=== PATIENT | male | born 1965 | race Caucasian/White ===

== ENCOUNTER 2018-06-28 09:55 | Day surgery (SDC) | payer OTHER ==
--- NOTE | 2018-06-20 14:10 | HP ---
PREOPERATIVE HISTORY AND PHYSICAL: DATE OF ADMISSION/SURGERY: 06/28/18 [facility] DATE OF OFFICE VISIT/ENCOUNTER: 06/20/18 ATTENDING SURGEON: Natty Davenport MD * (DICTATED BY IMELDA ORTIZ) PROCEDURE: Right wrist arthroscopy and possible scapholunate ligament repair. CHIEF COMPLAINT: Right wrist pain. HISTORY OF PRESENT ILLNESS: This is a 52-year-old male who sustained injury to his right wrist back in mid April 2018 when he fell on his yard. All of his weight landed onto his outstretched right hand. He was initially seen at [facility] where x-rays did not show any sign of fracture, but did show a possible problem at the scapholunate junction and a subsequent MRI has confirmed that he has at least a partial tear of the scapholunate ligament. He has been evaluated by Dr. Davenport. He is having pain with all activities involving the right hand. Wrist brace gives him some minimal relief. This is his dominant hand. He is interested in pursuing surgical intervention for his right wrist for best outcome as recommended by Dr. Davenport and has agreed to proceed with a right wrist arthroscopy and possible scapholunate ligament repair. PAST MEDICAL HISTORY: 1. Hypertension. 2. Depression/anxiety. 3. High cholesterol. 4. GERD. PAST SURGICAL HISTORY: 1. Tonsillectomy. 2. Back surgery. 3. Right shoulder surgery. 4. Left wrist fusion. CURRENT MEDICATIONS: 1. Aspirin 81 mg daily. 2. Benadryl Allergy 25 mg q.6 hours p.r.n. itch/rash. 3. Calcium citrate 200 mg daily. 4. Lisinopril 20 mg daily. 5. Loratadine 10 mg daily. 6. Metoprolol tartrate 25 mg daily. 7. Multivitamin daily. 8. Omeprazole 20 mg daily. 9. Sertraline HCl 50 mg daily. 10. Simvastatin 20 mg daily. ALLERGIES: DEMEROL causes nausea. FAMILY MEDICAL HISTORY: Diabetes, heart disease, cancer. SOCIAL HISTORY: He is disabled from work. He denies tobacco use, recreational drug use, and does not drink alcohol. REVIEW OF SYSTEMS: Negative for general, cephalic, cardiovascular, respiratory , GI, , other musculoskeletal, integumentary, endocrine, neurologic, hematologic symptoms. Infectious disease is negative for MRSA, hepatitis C, HIV. PHYSICAL EXAMINATION GENERAL: Well-developed, well-nourished 52-year-old male in no acute distress. VITAL SIGNS: Height 5 feet 9 inches, weight 249 pounds. Pulse rate 76, blood pressure 120/74. HEENT: Normocephalic, atraumatic. Pupils are equal, round, and reactive to light and accommodation. Extraocular movements are intact. NECK: Supple. No palpable lymph nodes. Throat is clear. PULMONARY: Lungs are clear to auscultation bilaterally. No wheezes, rales, or rhonchi. CARDIOVASCULAR: Regular rate and rhythm. S1 and S2. No murmurs, rubs, or gallops. No edema. ABDOMEN: Positive bowel sounds. Soft, nontender. MUSCULOSKELETAL: On exam of the right wrist, he has tenderness to palpation across the radiocarpal joint, particularly at the scapholunate junction and in the snuffbox. He has no palpable clicking with a Abdi shift test, but it is very painful for him. He has limitations in wrist motion, both flexion and extension, and these motions cause him pain. Skin is intact. Neurovascular function is intact. NEUROLOGIC: Alert and oriented x3. Cranial nerves II through XII are intact. Sensation is intact to light touch. IMAGING STUDIES: X-rays of the right wrist show no sign of a fracture or dislocation, but there is a gap between the scaphoid and the lunate bone, suspicious for scapholunate ligament tear. MRI arthrogram of the right wrist shows at least a partial scapholunate ligament tear. IMPRESSION: Right wrist pain with likely scapholunate ligament tear. PLAN/RECOMMENDATIONS: The patient is scheduled to undergo a right wrist arthroscopy and possible scapholunate ligament repair with Dr. Davenport on . He will return to the office 10 days postop for followup and suture removal. A prescription for Tylenol No. 3 was e-scribed to the patient's pharmacy for postoperative pain management. IMELDA ORTIZ [id number]/[facility] #: [id number] MTDD
[~2018-06-28 09:55] MED LIST: Buffered Lidocaine 0.9% SYRIN* 5 ML/SYR SYRINGE INTRADERM ONE; Dexamethasone TAB* 4 MG ONE; Dexamethasone TAB* 4 MG PO ONE; DiMENhydriNATE IV* 50 MG/ML VIAL IV PUSH PRN; Famotidine IV* 10 MG/ML 2 ML (20 mg) IV ONE; Famotidine IV* 10 MG/ML 2 ML (20 mg) ONE; Morphine INJ* 2 MG/ML 1 ML SYRINGE (TWO MG - NEW SYRINGE VERSION) IV PRN; Naloxone* 0.4 MG/ML 1 ML VIAL IV PRN; Ondansetron ODT TAB* 4 MG ONE; Ondansetron TAB* 4 MG PO ONE; PROCHLORPERAZINE INJ 5 MG/ML 2 ML VIAL IV PRN; fentaNYL* 50 MCG/ML 2 ML VIAL (100 MCG VIAL) IV PRN; oxyCODONE/Acetamin 5/325 MG* TAB PO PRN
[2018-06-28] MEDS ORDERED: ceFAZolin 2 GM in NS PREMIX(*) 2 GM/100 ML BAG IVPB ONE (10:06)
[2018-06-28] MEDS ORDERED: KETAMINE HCL* 50 MG/ML 10 ML VIAL ONE (10:14)
[2018-06-28] MEDS ORDERED: Midazolam* 1 MG/ML 5 ML VIAL (5 MG) ONE (10:14)
[2018-06-28] MEDS ORDERED: fentaNYL* 50 MCG/ML 2 ML VIAL (100 MCG VIAL) ONE (10:14)
[2018-06-28] MEDS ORDERED: ROPIVACAINE 5 MG/ML 30 ML BTL (0.5%) ONE (11:36)
[2018-06-28] MEDS ORDERED: Ketorolac INJ* 30 MG/ML 1 ML VIAL ONE (12:23)
[2018-06-28] MEDS ORDERED: Propofol* 10 MG/ML 20 ML BTL IV PUSH ONE (12:23)
[2018-06-28] MEDS ORDERED: Lidocaine 2% PF * 5 ML VIAL ONE (12:23)
[2018-06-28 15:09] VITALS: BP 125/76
--- NOTE | 2018-06-29 03:47 | OP ---
DATE OF OPERATION: 06/28/18 [facility] DATE OF : 67 SURGEON: Natty Davenport MD WELDER FITTER APPRENTICE: IMELDA Bernard ANESTHESIA: General. PRE-OP DIAGNOSIS: Right scapholunate ligament tear. POST-OP DIAGNOSIS: Right scapholunate ligament tear and right TFCC tear. OPERATIVE PROCEDURE: Right wrist arthroscopy, TFCC debridement and scapholunate ligament repair. ESTIMATED BLOOD LOSS: Zero. TOURNIQUET TIME: About 45 minutes. INDICATIONS FOR PROCEDURE: Freedom is a 52-year-old male, who injured his right wrist in April and has persistent pain. MRI shows a scapholunate ligament tear. He presents for arthroscopy and repair. DESCRIPTION OF PROCEDURE: The patient was brought to the operating room, was given a general anesthetic and placed in supine position on the operating table with a tourniquet around his right upper arm. The skin of his right upper extremity was prepped and draped in the usual sterile fashion. The hand and forearm were exsanguinated and the tourniquet elevated to 250 mmHg. The wrist joint was filled with 10 cc of ropivacaine, 0.5% plain and then stab incisions were made just distal to Adwoa's tubercle and at the 4-5 interval. The arthroscope was placed in the radiocarpal joint and diagnostic arthroscopy was performed. The articular surface of the radius showed some fraying. There was a large tear of the scapholunate ligament. There was a complex chronic appearing tear of the TFCC and some bare bone on the triquetrum. There was gross instability at the scapholunate junction. Through the 4-5 interval, a 2.0 gator shaver was placed and the TFCC tear was debrided. There was very little cartilaginous disk remaining. The arthroscopy instruments were removed and then the radial incision was extended proximally and distally down to the extensor retinaculum. The retinaculum was incised and the third compartment of the EPL tendon transposed radially. The posterior interosseous nerve was removed and then the wrist joint capsule was incised longitudinally giving us access to the radiocarpal joint. There was indeed a complete tear of the scapholunate ligament off of the lunate. The rongeur and curette were used to debride the lunate and a single Mitek suture anchor was placed through the appropriate size drill hole. The bones were then reduced and pinned the scaphoid to the capitate and the scaphoid to the lunate with 0.062 inch K- wires. These K-wires positions were checked on the C-arm in the AP and lateral views and found to be satisfactory. Next, the Mitek anchor sutures were tied through the remaining portions of the scapholunate ligament and then the wrist joint capsule was closed after irrigation with 2-0 Vicryl suture. The extensor retinaculum was repaired with EPL left outside with 2-0 Vicryl suture. The skin edges were reapproximated with 4-0 nylon suture and the wound was dressed with Xeroform, 4x4, Webril and sugar tong splint. The patient tolerated the procedure well, was brought to the recovery room in good condition. [id number]/[facility] #: [id number] MONIQUE
--- NOTE | 2018-06-29 16:36 | RAD ---
INDICATION: Intraoperative fluoroscopy RIGHT wrist. Technique: 3.15 seconds of?fluoroscopy?was provided?for the physician proceduralist. REPORT: Spot images document a surgical anchor at the lunate and percutaneous wires extending across the scaphoid capitate and scaphoid lunate intervals. IMPRESSION: Procedural control films. CPT II Codes: G9500
== END 2018-06-28 15:04 | disposition home or self-care (01) ==
LOC: OREAST 09:55
PROVIDERS: ATTEND Orthopaedic Surgery
DX: S63.511A Sprain of carpal joint of right wrist, initial encounter (principal); I10 Essential (primary) hypertension; F41.8 Other specified anxiety disorders; E78.00 Pure hypercholesterolemia, unspecified; K21.9 Gastro-esophageal reflux disease without esophagitis; W19.XXXA Unspecified fall, initial encounter; Y92.096 Garden or yard of other non-institutional residence as the place of occurrence of the external cause
CPT/HCPCS: 76000; A9270-GY; C1713; C1776; J0690; J1885; J2250; J2704; J2795; J3010; J8540

== ENCOUNTER 2018-08-26 12:14 | Day surgery (SDC) | payer OTHER ==
--- NOTE | 2018-08-12 06:29 | HP ---
PREOP HISTORY AND PHYSICAL: DATE OF ADMISSION: 08/23/18 [facility] CHIEF COMPLAINT: Right wrist pain, status post scapholunate ligament repair. HISTORY OF PRESENT ILLNESS: Freedom is a 52-year-old male, who had a scapholunate ligament repair on 06/28/18. He presents now for pin removal. PAST MEDICAL HISTORY: Hypertension, depression, anxiety, high cholesterol, and reflux. PAST SURGICAL HISTORY: Tonsillectomy, back surgery, right shoulder surgery, left wrist fusion, right scapholunate ligament repair. CURRENT MEDICATIONS: 1. Tylenol With Codeine No. 3 p.r.n. 2. Lisinopril 20 mg p.o. daily. 3. Simvastatin 20 mg p.o. daily. 4. Loratadine 10 mg p.o. daily. 5. Sertraline 50 mg p.o. b.i.d. 6. Omeprazole 20 mg p.o. daily. 7. Metoprolol tartrate 25 mg p.o. daily. 8. Aspir-Low 80 mg p.o. daily. 9. Benadryl 25 mg p.o. p.r.n. 10. Multivitamin p.o. daily. 11. Calcium citrate 200 mg p.o. daily. DRUG ALLERGIES: To DEMEROL, which causes nausea. FAMILY HISTORY: Diabetes, heart disease, and cancer. SOCIAL HISTORY: He is disabled from work. Denies tobacco use, drug use, and does not drink alcohol. REVIEW OF SYSTEMS: Negative for cephalic, cardiovascular, respiratory, GI, , other musculoskeletal, integumentary, endocrine, neurologic, and hematologic symptoms. Infectious Disease: Negative for MRSA, hepatitis C, and HIV. PHYSICAL EXAMINATION GENERAL: He is a healthy-appearing, very pleasant man, in no acute distress. VITAL SIGNS: He is 5 feet 9 inches, weighs 249 pounds. His pulse is 68, respirations 16, temperature 95.8. HEENT: Exam is unremarkable. His eye movements are concentric. NECK: Good range of motion of his neck without pain. No masses are palpated. LUNGS: Clear to auscultation. Good inspiratory effort. No wheezing. CARDIAC: Regular rate and rhythm without murmur. PERIPHERAL VASCULAR: He has palpable pulses and no peripheral edema. MUSCULOSKELETAL: On exam of his right wrist, he has a cast on. There is minimal swelling. He has good range of motion of his fingers. NEUROLOGICAL: He is alert and oriented. IMPRESSION: Status post scapholunate ligament repair of the right wrist with retained hardware. PLAN: Plan is for pin removal from the right wrist. I will see the patient back in followup approximately 10 days postop. [id number]/[facility] #: [id number] MTDShellie
[~2018-08-26 12:14] MED LIST changes: -Dexamethasone TAB* 4 MG ONE; -Dexamethasone TAB* 4 MG PO ONE; -DiMENhydriNATE IV* 50 MG/ML VIAL IV PUSH PRN; -Famotidine IV* 10 MG/ML 2 ML (20 mg) IV ONE; -Famotidine IV* 10 MG/ML 2 ML (20 mg) ONE; -Morphine INJ* 2 MG/ML 1 ML SYRINGE (TWO MG - NEW SYRINGE VERSION) IV PRN; -Naloxone* 0.4 MG/ML 1 ML VIAL IV PRN; -Ondansetron ODT TAB* 4 MG ONE; -Ondansetron TAB* 4 MG PO ONE; -PROCHLORPERAZINE INJ 5 MG/ML 2 ML VIAL IV PRN; -fentaNYL* 50 MCG/ML 2 ML VIAL (100 MCG VIAL) IV PRN; -oxyCODONE/Acetamin 5/325 MG* TAB PO PRN
[2018-08-26] MEDS ORDERED: Lidocaine 1% INJ* 10 MG/ML 30 ML SDV ONE (14:04)
[2018-08-26] MEDS ORDERED: fentaNYL* 50 MCG/ML 2 ML VIAL (100 MCG VIAL) ONE (14:17)
[2018-08-26] MEDS ORDERED: Midazolam* 1 MG/ML 2 ML VIAL (2 MG) ONE (14:17)
[2018-08-26] MEDS ORDERED: Lidocaine 2% PF * 5 ML VIAL ONE (14:20)
[2018-08-26] MEDS ORDERED: Propofol* 10 MG/ML 20 ML BTL IV PUSH ONE (14:20)
[2018-08-26] MEDS ORDERED: Naloxone* 0.4 MG/ML 1 ML VIAL IV PRN (14:49)
[2018-08-26 15:12] VITALS: BP 126/89
--- NOTE | 2018-08-27 11:11 | OP ---
DATE OF OPERATION: 08/26/18 [facility] DATE OF : 67 SURGEON: Natty Davenport MD. PROJECT ENG: IMELDA Bernard. ANESTHESIA: Local MAC. PRE-OP DIAGNOSIS: Status post scapholunate ligament repair of the right wrist. POST-OP DIAGNOSIS: Status post scapholunate ligament repair of the right wrist. OPERATIVE PROCEDURE: Pin removal, right wrist. ESTIMATED BLOOD LOSS: 0. TOURNIQUET TIME: 0. INDICATIONS FOR PROCEDURE: Freedom is a 52-year-old male who had a scapholunate ligament repair approximately 8 weeks ago. He has had pins buried subcutaneously, he presents now for pin removal. DESCRIPTION OF PROCEDURE: The patient was brought the operating room, he was given a sedation anesthetic and a local infiltration and 10 cc of 1% plain lidocaine directly overlying the 2 pins. The skin of his left hand and forearm was prepped and draped in the usual sterile fashion. A small stab incision was made over the pins. They were easily retrieved with a needle residential driver. The wound was irrigated with saline and skin edges were reapproximated with 4-0 nylon suture. The wound was dressed with Xeroform, 4x4, Webril, an Tate wrap, and a volar splint. The patient tolerated the procedure well and was brought to the recovery room in good condition. [id number]/[facility] #: [id number] MTDD
== END 2018-08-26 15:27 | disposition home or self-care (01) ==
LOC: OREAST 12:14
PROVIDERS: ATTEND Orthopaedic Surgery
DX: Z47.2 Encounter for removal of internal fixation device (principal); F32.9 Major depressive disorder, single episode, unspecified; I10 Essential (primary) hypertension; E78.00 Pure hypercholesterolemia, unspecified
CPT/HCPCS: J2250; J2704; J3010